=== PATIENT | male | born 1995 | race Caucasian/White ===

== ENCOUNTER 2017-02-11 11:05 | Emergency (ER) | payer OTHER ==
[2017-02-11 11:10] VITALS: BP 151/76
[2017-02-11] MEDS ORDERED: HYDROmorphone 1 MG/ML Syringe IM ONE (11:13)
--- NOTE | 2017-02-11 11:43 | EDM.PDOC ---
ED HPI GENERAL MEDICAL PROBLEM - General Chief Complaint: Laceration Stated Complaint: Smashed L pinky Time Seen by Provider: 02/11/17 11:10 Source of Information: Reports: Patient History Limitations: Reports: No Limitations - History of Present Illness Onset: Sudden Location: Reports: Upper Extremity, Left Quality: Reports: Ache Severity: Moderate Improves with: Reports: Immobilization Worsens with: Reports: Movement Left 5-Little finger Pain Score (Numeric/FACES): 5 - Related Data Allergies Allergy/AdvReac Type Severity Reaction Status Date / Time No Known Allergies Allergy Verified 02/11/17 11:07 Home Meds: Home Meds Acetaminophen [Tylenol Extra Strength] 500 mg PO BID PRN 04/19/15 [History] Cephalexin [Keflex] 500 mg PO QID #40 cap 02/11/17 [Rx] Past Medical History - Past Health History Medical/Surgical History: Denies Medical/Surgical History Social & Family History - Tobacco Use Smoking Status *Q: Never Smoker - Recreational Drug Use Recreational Drug Use: No ED ROS GENERAL - Review of Systems Review Of Systems: See Below Constitutional: Reports: No Symptoms HEENT: Reports: No Symptoms Respiratory: Reports: No Symptoms Cardiovascular: Reports: No Symptoms Endocrine: Reports: No Symptoms GI/Abdominal: Reports: No Symptoms : Reports: No Symptoms Musculoskeletal: Reports: No Symptoms Skin: Reports: No Symptoms Neurological: Reports: No Symptoms Psychiatric: Reports: No Symptoms Hematologic/Lymphatic: Reports: No Symptoms Immunologic: Reports: No Symptoms ED EXAM, SKIN/RASH Exam: See Below Exam Limited By: No Limitations General Appearance: Alert, WD/WN, No Apparent Distress Ears: Normal External Exam, Normal Canal, Hearing Grossly Normal, Normal TMs Nose: Normal Inspection, Normal Mucosa, No Blood Throat/Mouth: Normal Inspection, Normal Lips, Normal Teeth, Normal Gums, Normal Oropharynx, Normal Voice, No Airway Compromise Head: Atraumatic, Normocephalic Neck: Normal Inspection, Supple, Non-Tender, Full Range of Motion Respiratory/Chest: No Respiratory Distress, Lungs Clear, Normal Breath Sounds, No Accessory Muscle Use, Chest Non-Tender Cardiovascular: Normal Peripheral Pulses, Regular Rate, Rhythm, No Edema, No Gallop, No JVD, No Murmur, No Rub GI/Abdominal: Normal Bowel Sounds, Soft, Non-Tender, No Organomegaly, No Distention, No Abnormal Bruit, No Mass (Male) Exam: No Hernia, Deferred Rectal (Males) Exam: Deferred Back Exam: Normal Inspection, Full Range of Motion, NT Extremities: Other. No: No Pedal Edema (With pressure dressing on his left pinky at this time pressure dressing was removed noted a laceration in the distal and x-ray were obtained which reveal fracture of the distal third. Phalangeal nondisplaced) Neurological: Alert, Oriented, CN II-XII Intact, Normal Cognition, Normal Gait, Normal Reflexes, No Motor/Sensory Deficits Psychiatric: Normal Affect, Normal Mood Lymphatic: No Adenopathy ED SKIN PROCEDURES - Laceration/Wound Repair Left Distal Finger Lac/Wound length In cm: 1 Appearance: Subcutaneous Distal NVT: Neuro & Vascular Intact Anesthetic Type: Local Local Anesthesia - Lidocaine (Xylocaine): 2% Plain Local Anesthetic Volume: 2cc Skin Prep: Chlorhexidine (Hibiciens), Providone-Iodine (Betadine), Sterile Drape , Other (cleaned with chloraprep as well ) Exploration/Debridement/Repair: Wound Explored Closed with: Sutures Suture Size: other (5-0 sutures) Suture Type: Nylon Progress/Comments: Wound was on left distal 5th finger laceration was 1 cm the area was prepped and draped in the usual standard for after x-rays revealed fracture of the distal and comminuted nondisplaced we'll go ahead and sutures distal and place him on a crows nest for limiting motion and release him home not to drive for the next 24 hours since he received Dilaudid prior to repair of distal end Course - Vital Signs Last Recorded V/S: Last Vital Signs Temp 98.5 F 02/11/17 11:09 Pulse Resp 14 02/11/17 11:09 BP 151/76 H 02/11/17 11:09 Pulse Ox 99 02/11/17 11:09 - Orders/Labs/Meds Orders: Active Orders 24 hr Category Date Time Status Fingers Fifth Digit Lt F4 [CR] Stat Exams 02/11/17 11:10 Ordered Meds: Medications Discontinued Medications Generic Name Dose Route Start Last Admin Trade Name Freq PRN Reason Stop Dose Admin Hydromorphone HCl 2 mg 02/11/17 11:13 02/11/17 11:19 Dilaudid IM 02/11/17 11:14 2 mg ONETIME ONE Administration Lidocaine HCl Confirm 02/11/17 11:30 Xylocaine 2% Administered 02/11/17 11:31 Dose 10 ml .ROUTE .STK-MED ONE Neomycin/Polymyxin/Bacitracin 1 each 02/11/17 11:47 Triple Antibiotic Oint TOP 02/11/17 11:48 ONETIME ONE Departure - Departure Time of Disposition: 12:08 Disposition: Home, Self-Care 01 Condition: Good Clinical Impression: Laceration, Fracture - Discharge Information Prescriptions: Cephalexin [Keflex] 500 mg PO QID #40 cap Instructions: Hydromorphone injection, Cephalexin tablets or capsules, Stitches , Breanna, or Adhesive Wound Closure, [id number] Referrals: Jose Antonio Tarango MD [Emergency Provider] - 02/14/17 3:30 pm (Follow up ER Visit ) PCP,Franky [Primary Care Provider] - Forms: ED Department Discharge, Return to Work/School Form Additional Instructions: Off work today 02-11-17. No further restrictions. Patient to follow up in Tuesday in Clinic. - Problem List & Annotations (1) Fracture SNOMED Code(s): 299933898 Code(s): T14.8 - OTHER INJURY OF UNSPECIFIED BODY REGION Status: Acute Current Visit: Yes Annotation/Comment:: Distal end fifth finger comminuted but nondisplaced (2) Laceration SNOMED Code(s): 765599474 Code(s): IXP2622 - Status: Acute Current Visit: Yes Annotation/Comment :: Distal and fifth finger 1 cm - Problem List Review Problem List Initiated/Reviewed/Updated: Yes - My Orders Last 24 Hours: My Active Orders 02/11/17 11:10 Fingers Fifth Digit Lt F4 [CR] Stat - Assessment/Plan Last 24 Hours: My Active Orders 02/11/17 11:10 Fingers Fifth Digit Lt F4 [CR] Stat
[2017-02-11] MEDS ORDERED: Bacitracin/Neomycin/Polymyxin B Oint 0.9 GM U/D Packet TOP ONE (11:47)
== END 2017-02-11 12:10 | disposition home or self-care (01) ==
LOC: LL.ED 11:05
DX: S62.663A Nondisplaced fracture of distal phalanx of left middle finger, initial encounter for closed fracture (principal); S61.217A Laceration without foreign body of left little finger without damage to nail, initial encounter; W22.8XXA Striking against or struck by other objects, initial encounter
CPT/HCPCS: 12001; 73140; 96372; 99283; J1170

== ENCOUNTER 2017-07-16 07:50 | Emergency (ER) | payer OTHER ==
[2017-07-16] MEDS ORDERED: Sodium Chloride 0.9% 1,000 ML IV ONE ×2 (08:05→09:29)
[2017-07-16] MEDS ORDERED: predniSONE 20 MG Tab PO STA (08:06)
[2017-07-16] MEDS ORDERED: Ketorolac 30 MG/ML SDV IVPUSH ONE (08:07)
[2017-07-16 08:27] LABS: CHLORIDE,CL 101 mmol/L (98-107); SODIUM,NA 138 mmol/L (136-145)
[2017-07-16 08:44] VITALS: BP 142/69
[2017-07-16] MEDS ORDERED: methylPREDNISolone Sodium Succinate 125 MG/2 ML SDV IVPUSH ONE (08:44)
[2017-07-16] MEDS: Sodium Chloride 0.9% 10 ML Syringe FLUSH PRN ×2 (08:49→09:33)
[2017-07-16] MEDS ORDERED: Ondansetron 4 MG/2 ML SDV IVPUSH ONE (09:27)
[2017-07-16] MEDS ORDERED: Morphine 2 MG/ML Syringe IVPUSH ONE (09:28)
--- NOTE | 2017-07-16 10:27 | EDM.PDOC ---
ED HPI GENERAL MEDICAL PROBLEM - General Chief Complaint: General Stated Complaint: throat pain, SOB Time Seen by Provider: 07/16/17 08:25 Source of Information: Reports: Patient History Limitations: Reports: No Limitations - History of Present Illness INITIAL COMMENTS - FREE TEXT/NARRATIVE: Patient here for continued pharyngitis. Sick now for a full week. Seen in clinic . Negative Rapid Strep but started on Augmentin anyway. No improvement of pain/swelling. Very painful to swallow food/liquids. 10/10 pain. Has some nasal congestion (no rhinorrhea). Has had chills. Unaware of any fevers. No GI complaints until he started Augmentin. Developed nausea after taking pills as well as loose stools. No cough/SOB. No rash. No other complaints. 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 Says he is usually healthy otherwise. throat Pain Score (Numeric/FACES): 10 - Related Data Allergies Allergy/AdvReac Type Severity Reaction Status Date / Time No Known Allergies Allergy Verified 07/16/17 08:03 Home Meds: Home Meds Amoxicillin/Clavulanate K [Augmentin 875 MG/125 MG] 1 tab PO BID 07/16/17 [ History] DM Hb/PE/Acetaminophen/Chlorph [[place]herry-[place] Plus Cld-Cough] 1 each PO Q4HR PRN 07/16/17 [History] Ibuprofen 600 mg PO Q4HR PRN 07/16/17 [History] Prednisone [IJD: predniSONE] 20 mg PO WITHBREAKFAST PRN #5 tab 07/16/17 [Rx] traMADol [Ultram] 50 mg PO Q6H PRN #20 tablet 07/16/17 [Rx] Past Medical History - Past Health History Medical/Surgical History: Denies Medical/Surgical History Social & Family History - Tobacco Use Smoking Status *Q: Never Smoker Second Hand Smoke Exposure: No - Alcohol Use Days Per Week of Alcohol Use: 1 Number of Drinks Per Day: 1 Total Drinks Per Week: 1 - Recreational Drug Use Recreational Drug Use: No ED ROS GENERAL - Review of Systems Review Of Systems: See Below Constitutional: Reports: Chills, Malaise, Fatigue, Decreased Appetite. Denies: Fever, Weakness, Diaphoresis HEENT: Reports: Ear Pain, Throat Pain, Throat Swelling. Denies: Rhinitis, Sinus Problem, Vertigo, Vision Change Respiratory: Reports: No Symptoms Cardiovascular: Reports: No Symptoms GI/Abdominal: Reports: Diarrhea, Decreased Appetite, Difficulty Swallowing, Nausea. Denies: Abdominal Pain, Constipation, Distension, Hematemesis, Hematochezia, Vomiting : Reports: No Symptoms Musculoskeletal: Reports: No Symptoms. Denies: Neck Pain Skin: Reports: No Symptoms Neurological: Denies: Confusion, Dizziness, Headache, Syncope, Difficulty Walking, Weakness, Change in Speech, Gait Disturbance Psychiatric: Reports: No Symptoms Hematologic/Lymphatic: Reports: No Symptoms ED EXAM, GENERAL - Physical Exam Exam: See Below Exam Limited By: No Limitations General Appearance: Alert, WD/WN, No Apparent Distress, Other (appears tired. Is uncomfortable when he tries to speak or swallow. ) Eye Exam: Bilateral Eye: EOMI, PERRL Ears: Normal External Exam, Normal Canal, Hearing Grossly Normal, Normal TMs Nose: Normal Inspection Throat/Mouth: Normal Lips, Normal Voice, No Airway Compromise, Other (Very swollen tonsils bilaterally. Minimal exudate noted. Symmetric swelling. Increased redness. ) Head: Atraumatic, Normocephalic Neck: Supple, Full Range of Motion, Lymphadenopathy (L), Lymphadenopathy (R) Respiratory/Chest: No Respiratory Distress, Lungs Clear, Normal Breath Sounds, No Accessory Muscle Use Cardiovascular: No Murmur, Tachycardia Peripheral Pulses: 2+: Radial (L), Radial (R) GI/Abdominal: Normal Bowel Sounds, Soft, Non-Tender, No Distention, No Mass (Male) Exam: Deferred Rectal (Males) Exam: Deferred Back Exam: Normal Inspection Extremities: Normal Range of Motion, Non-Tender, No Pedal Edema, Slow Capillary Refill (3-4 seconds) Neurological: Alert, Oriented, Normal Cognition, Normal Gait, No Motor/Sensory Deficits Psychiatric: Normal Affect, Normal Mood Skin Exam: Warm, Dry, Intact, Normal Color Lymphatic: Adenopathy Course - Vital Signs Last Recorded V/S: Last Vital Signs Temp 38.2 C H 07/16/17 08:33 Pulse 113 H 07/16/17 08:33 Resp 18 07/16/17 08:33 BP 142/69 H 07/16/17 08:33 Pulse Ox 97 07/16/17 08:33 - Orders/Labs/Meds Orders: Active Orders 24 hr Category Date Time Status Peripheral IV Care [RC] . DIRECTED Care 07/16/17 08:05 Active CULTURE URINE [RM] Stat Lab 07/16/17 09:52 Received Sodium Chloride 0.9% [Saline Flush] Med 07/16/17 08:05 Active 10 ml FLUSH ASDIRECTED PRN Peripheral IV Insertion Adult [OM.PC] Routine Oth 07/16/17 08:05 Ordered Labs: Laboratory Tests 07/16/17 07/16/17 07/16/17 Range/Units 08:05 08:05 08:05 WBC 12.0 H (4.0-10.2) K/uL RBC 4.68 (4.33-5.41) M/uL Hgb 14.6 (13.1-16.8) g/dL Hct 42.7 (39.0-49.0) % MCV 91.2 (84.0-98.0) fL MCH 31.2 (28.2-33.3) pg MCHC 34.2 (31.7-36.0) g/dL RDW 12.5 (11.2-14.1) % Plt Count 182 (150-350) K/uL Neut % (Auto) 62.5 (45.0-80.0) % Lymph % (Auto) 24.5 (10.0-50.0) % Fountain % (Auto) 12.8 (2.0-14.0) % Eos % (Auto) 0.0 (0.0-5.0) % Baso % (Auto) 0.2 (0.0-2.0) % Neut # (Auto) 7.49 H (1.40-7.00) K/uL Lymph # (Auto) 2.94 (0.50-3.50) K/uL Fountain # (Auto) 1.53 H (0.00-1.00) K/uL Eos # (Auto) 0.00 (0.00-0.50) K/uL Baso # (Auto) 0.02 (0.00-0.20) K/uL Sodium 138 (136-145) mmol/L Potassium 4.0 (3.5-5.1) mmol/L Chloride 101 (98-107) mmol/L Carbon Dioxide 25.8 (21.0-32.0) mmol/L BUN 9 (7-18) mg/dL Creatinine 0.73 (0.51-1.17) mg/dL Est Cr Clr Drug Dosing TNP Estimated GFR (MDRD) > 60 mL/min Glucose 119 H (74-106) mg/dL Calcium 9.2 (8.5-10.1) mg/dL Specimen Type Urine Color Urine Appearance Urine pH (5.0-9.0) Ur Specific [place] (1.005-1.030) Urine Protein (NEGATIVE) mg/dL Urine Glucose (UA) (NEGATIVE) mg/dL Urine Ketones (NEGATIVE) mg/dL Urine Occult Blood (NEGATIVE) Urine Nitrite (NEGATIVE) Urine Bilirubin (NEGATIVE) Urine Urobilinogen (0.2-1.0) E.U./dL Ur Leukocyte Esterase (NEGATIVE) Urine RBC /HPF Urine WBC /HPF Ur Epithelial Cells /LPF Urine Bacteria (NONE TO FEW) /HPF Monoscreen Positive H (NEGATIVE) 07/16/17 Range/Units 09:52 WBC (4.0-10.2) K/uL RBC (4.33-5.41) M/uL Hgb (13.1-16.8) g/dL Hct (39.0-49.0) % MCV (84.0-98.0) fL MCH (28.2-33.3) pg MCHC (31.7-36.0) g/dL RDW (11.2-14.1) % Plt Count (150-350) K/uL Neut % (Auto) (45.0-80.0) % Lymph % (Auto) (10.0-50.0) % Fountain % (Auto) (2.0-14.0) % Eos % (Auto) (0.0-5.0) % Baso % (Auto) (0.0-2.0) % Neut # (Auto) (1.40-7.00) K/uL Lymph # (Auto) (0.50-3.50) K/uL Fountain # (Auto) (0.00-1.00) K/uL Eos # (Auto) (0.00-0.50) K/uL Baso # (Auto) (0.00-0.20) K/uL Sodium (136-145) mmol/L Potassium (3.5-5.1) mmol/L Chloride (98-107) mmol/L Carbon Dioxide (21.0-32.0) mmol/L BUN (7-18) mg/dL Creatinine (0.51-1.17) mg/dL Est Cr Clr Drug Dosing Estimated GFR (MDRD) mL/min Glucose (74-106) mg/dL Calcium (8.5-10.1) mg/dL Specimen Type Urincc Urine Color Dark yellow Urine Appearance Clear Urine pH 6.0 (5.0-9.0) Ur Specific [place] 1.025 (1.005-1.030) Urine Protein 100 H (NEGATIVE) mg/dL Urine Glucose (UA) Negative (NEGATIVE) mg/dL Urine Ketones >=160 H (NEGATIVE) mg/dL Urine Occult Blood Negative (NEGATIVE) Urine Nitrite Negative (NEGATIVE) Urine Bilirubin Moderate H (NEGATIVE) Urine Urobilinogen 1.0 (0.2-1.0) E.U./dL Ur Leukocyte Esterase Negative (NEGATIVE) Urine RBC 0-5 /HPF Urine WBC 0-5 /HPF Ur Epithelial Cells Few /LPF Urine Bacteria Few (NONE TO FEW) /HPF Monoscreen (NEGATIVE) Meds: Medications Discontinued Medications Generic Name Dose Route Start Last Admin Trade Name Freq PRN Reason Stop Dose Admin Sodium Chloride 1,000 mls @ 999 mls/hr 07/16/17 08:05 07/16/17 08:25 Normal Saline IV 07/16/17 09:05 999 mls/hr .BOLUS ONE Administration Sodium Chloride 1,000 mls @ 999 mls/hr 07/16/17 09:29 07/16/17 09:34 Normal Saline IV 07/16/17 10:29 999 mls/hr .BOLUS ONE Administration Ketorolac Tromethamine 30 mg 07/16/17 08:07 07/16/17 08:24 Toradol IVPUSH 07/16/17 08:08 30 mg ONETIME ONE Administration Methylprednisolone Sodium Succinate 125 mg 07/16/17 08:44 07/16/17 08:48 Solu-Medrol IVPUSH 07/16/17 08:45 125 mg ONETIME ONE Administration Morphine Sulfate 2 mg 07/16/17 09:28 07/16/17 09:32 Morphine IVPUSH 07/16/17 09:29 2 mg ONETIME ONE Administration Morphine Sulfate 5 mg 07/16/17 11:00 07/16/17 11:08 Morphine IVPUSH 07/16/17 11:01 5 mg ONETIME ONE Administration Ondansetron HCl 4 mg 07/16/17 09:27 07/16/17 09:32 Zofran IVPUSH 07/16/17 09:28 4 mg ONETIME ONE Administration Prednisone 40 mg 07/16/17 08:06 07/16/17 08:47 Prednisone PO 07/16/17 08:07 Not Given ONETIME STA Sodium Chloride 10 ml 07/16/17 08:05 07/16/17 09:33 Saline Flush FLUSH 10 ml ASDIRECTED PRN Administration Keep Vein Open - Re-Assessments/Exams Free Text/Narrative Re-Assessment/Exam: Positive for Fountain. Mild increase in WBC at 12 Chem is unremarkable. UA showed large quantity of ketones. Mild dehydration noted along with fever and tachycardia. Given Toradol and IV fluid bolus. Solumedrol given to help tonsils which were significantly swollen. Patient unable to swallow PO Prednisone. Ultimately, small amount MS given to help with pain. Patient felt improved after interventions. Pulse rate improved with fluid bolus. Patient discharged home. Rx for additional Tramadol given, as well as PRN Prednisone if swelling returns later this week. Numerous precautions reviewed prior to discharge. Normal course of Fountain discussed. They are to follow up as needed. OK to d/c Augmentin Departure - Departure Time of Disposition: 10:51 Disposition: Home, Self-Care 01 Condition: Good Clinical Impression: Mononucleosis, Dehydration Pharyngitis Qualifiers: Pharyngitis/tonsillitis etiology: infectious mononucleosis Qualified Code(s): B27.90 - Infectious mononucleosis, unspecified without complication - Discharge Information Prescriptions: Prednisone [IJD: predniSONE] 20 mg PO WITHBREAKFAST PRN #5 tab PRN Reason: Other traMADol [Ultram] 50 mg PO Q6H PRN #20 tablet PRN Reason: Pain Instructions: Ketorolac injection, Ondansetron injection, Infectious Mononucleosis, [id number], Prednisone tablets, Morphine injection solution Referrals: PCP,Unknown [Primary Care Provider] - Forms: ED Department Discharge Additional Instructions: Home, rest, drink plenty of fluids to stay hydrated. If you cannot swallow the antibiotic you were given the other day, it is very likely OK to discontinue it as your symptoms are explainable given the positive Fountain test. It is too late to accurately test for strep since you were on the antibiotics already. Swelling should improve now that you were given a steroid. If problematic swelling returns next week, it is ok to take the prescribed prednisone. Use Tramadol as needed to help with pain. Follow up Tuesday here if you need work excuse for additional day off as we discussed. Follow up otherwise as needed if you have other problems develop. - My Orders Last 24 Hours: My Active Orders 07/16/17 08:05 Peripheral IV Care [RC] . DIRECTED Sodium Chloride 0.9% [Saline Flush] 10 ml FLUSH ASDIRECTED PRN Peripheral IV Insertion Adult [OM.PC] Routine 07/16/17 09:52 CULTURE URINE [RM] Stat - Assessment/Plan Last 24 Hours: My Active Orders 07/16/17 08:05 Peripheral IV Care [RC] . DIRECTED Sodium Chloride 0.9% [Saline Flush] 10 ml FLUSH ASDIRECTED PRN Peripheral IV Insertion Adult [OM.PC] Routine 07/16/17 09:52 CULTURE URINE [RM] Stat
[2017-07-16] MEDS ORDERED: Morphine 10 MG/ML Syringe IVPUSH ONE (11:00)
== END 2017-07-16 11:30 | disposition home or self-care (01) ==
LOC: LL.ED 07:50
DX: B27.90 Infectious mononucleosis, unspecified without complication (principal); E86.0 Dehydration; R00.0 Tachycardia, unspecified
CPT/HCPCS: 36415; 80048; 81001; 85025; 86308; 87086; 96361; 96374; 96375; 96376; 99283; J1885; J2270; J2405; J2930; J7030; J7050

== ENCOUNTER 2017-07-17 15:06 | Observation (INO) | payer OTHER ==
[2017-07-17] MEDS ORDERED: methylPREDNISolone Sodium Succinate 125 MG/2 ML SDV IM ONE (15:08)
[2017-07-17] MEDS ORDERED: Ketorolac 30 MG/ML SDV IVPUSH ONE (15:08)
[2017-07-17 15:28] LABS: CHLORIDE,CL 100 mmol/L (98-107); SODIUM,NA 137 mmol/L (136-145)
[2017-07-17] MEDS: Sodium Chloride 0.9% 1,000 ML IV SCH ×2 (15:29→22:01)
[2017-07-17] MEDS ORDERED: methylPREDNISolone Sodium Succinate 125 MG/2 ML SDV IVPUSH ONE (15:37)
[2017-07-17] MEDS: Sodium Chloride 0.9% 10 ML Syringe FLUSH PRN (15:43)
[2017-07-17] MEDS ORDERED: Morphine 10 MG/ML Syringe IVPUSH ONE (16:27)
[2017-07-17] MEDS ORDERED: Ondansetron 4 MG/2 ML SDV IVPUSH ONE (16:28)
--- NOTE | 2017-07-17 17:02 | PCM.HP ---
H&P History of Present Illness - General Date of Service: 07/17/17 Admit Problem/Dx: Admission Diagnosis/Problem Admission Diagnosis/Problem Dehydration Source of Information: Patient History Limitations: Reports: No Limitations - History of Present Illness Initial Comments - Free Text/Narative: Patient returns to hospital due to continued problems with drinking/eating/ swallowing and throat pain due to recent Cocke infection. Did have improvement after receiving IV fluids yesterday as well as pain medication but these did not last. Denies any acute SOB/respiratory difficulty. See EMR from yesterday for additional history. throat Pain Score (Numeric/FACES): 10 - Related Data Allergies/Adverse Reactions: Allergies Allergy/AdvReac Type Severity Reaction Status Date / Time No Known Allergies Allergy Verified 07/17/17 15:16 Home Medications: Home Meds DM Hb/PE/Acetaminophen/Chlorph [Sherry-[place] Plus Cld-Cough] 1 each PO Q4HR PRN 07/16/17 [History] Ibuprofen 600 mg PO Q4HR PRN 07/16/17 [History] traMADol [Ultram] 50 mg PO Q6H PRN #20 tablet 07/16/17 [Rx] Prednisone [IJD: predniSONE] 40 mg PO WITHBREAKFAST PRN 07/17/17 [History] Past Medical History - Past Health History Medical/Surgical History: Denies Medical/Surgical History Social & Family History - Tobacco Use Smoking Status *Q: Never Smoker Second Hand Smoke Exposure: No - Alcohol Use Days Per Week of Alcohol Use: 1 Number of Drinks Per Day: 1 Total Drinks Per Week: 1 - Recreational Drug Use Recreational Drug Use: No H&P Review of Systems - Review of Systems: Review Of Systems: See Below General: Reports: Fever, Chills, Malaise, Weakness, Fatigue, Decreased Appetite. Denies: Diaphoresis HEENT: Reports: Sinus Congestion, Sore Throat. Denies: Contact Lenses, Dysphasia, Ear Pain, Eye Pain, Headaches, Hearing Changes, Rhinitis, Post Nasal Drip, Vertigo, Visual Changes Pulmonary: Reports: No Symptoms. Denies: Shortness of Breath, Wheezing Cardiovascular: Reports: No Symptoms Gastrointestinal: Reports: Diarrhea (had 3 days of Augmentin), Decreased Appetite, Difficulty Swallowing. Denies: Abdominal Pain, Nausea, Vomiting Genitourinary: Reports: No Symptoms Musculoskeletal: Reports: Other (generalized aches) Skin: Reports: No Symptoms Exam - Exam Exam: See Below - Vital Signs Vital Signs: Last Vital Signs Temp 37.0 C 07/17/17 15:07 Pulse 103 H 07/17/17 15:07 Resp 18 07/17/17 15:07 BP 143/71 H 07/17/17 15:07 Pulse Ox 98 07/17/17 15:07 Weight: 101.179 kg - Exam General: Alert, Oriented, Cooperative HEENT: Conjunctiva Clear, EACs Clear, EOMI, Nares Patent, Pupils Equal, Pupils Reactive, Other (Significantly swollen tonsils with some exudate noted, reddened. Symmetric swelling. Uvula midline) Neck: Supple, Trachea Midline, Lymphadenopathy Lungs: Clear to Auscultation, Normal Respiratory Effort Cardiovascular: Regular Rhythm, Tachycardia GI/Abdominal Exam: Normal Bowel Sounds, Soft, Other (mild tenderness upper quadrants.). No: Distended, Guarding, Rigid, Rebound, Hepatomegaly, Splenomegaly (Male) Exam: Deferred Rectal (Males) Exam: Deferred Back Exam: Normal Inspection Extremities: Normal Range of Motion, Non-Tender, No Pedal Edema, Other (Cap refill 3-4 sec) Peripheral Pulses: 2+: Radial (L), Radial (R) Skin: Warm, Dry, Intact Neurological: Cranial Nerves Intact, Strength Equal Bilateral, Normal Gait, Normal Speech, Normal Tone Neuro Extensive - Mental Status: Alert, Oriented x3, Normal Mood/Affect, Normal Cognition, Memory Intact Psychiatric: Alert, Normal Affect, Normal Mood - Patient Data Lab Results Last 24 hrs: Laboratory Results - last 24 hr 07/17/17 Range/Units 15:10 Sodium 137 (136-145) mmol/L Potassium 3.8 (3.5-5.1) mmol/L Chloride 100 (98-107) mmol/L Carbon Dioxide 25.4 (21.0-32.0) mmol/L BUN 11 (7-18) mg/dL Creatinine 0.64 (0.51-1.17) mg/dL Est Cr Clr Drug Dosing TNP Estimated GFR (MDRD) > 60 mL/min Glucose 138 H (74-106) mg/dL Calcium 9.0 (8.5-10.1) mg/dL Total Bilirubin 0.4 (0.2-1.0) mg/dL AST 160 H (15-37) U/L ALT 263 H (12-78) U/L Alkaline Phosphatase 158 H (46-116) IU/L Total Protein 8.1 (6.4-8.2) g/dL Albumin 3.5 (3.4-5.0) g/dL Result Diagrams: 07/17/17 15:10 *Q Meaningful Use (ADM) - VTE *Q VTE Criteria *Q: - Stroke *Q Stroke Criteria *Q: - AMI *Q AMI Criteria *Q: - Problem List (1) Dehydration SNOMED Code(s): 68541630 ICD Code: E86.0 - DEHYDRATION Status: Acute Priority: High Current Visit: Yes Onset Date: ~07/09/17 Problem Details: Patient has severe 10/10 throat pain and has a great deal of difficulty swallowing any liquids/food. (2) Mononucleosis SNOMED Code(s): 40958817 ICD Code: B27.90 - INFECTIOUS MONONUCLEOSIS, UNSPECIFIED WITHOUT COMPLICATION Status: Acute Priority: High Current Visit: Yes Onset Date : 07/02/17 (3) Pharyngitis SNOMED Code(s): 894386298 ICD Code: J02.9 - ACUTE PHARYNGITIS, UNSPECIFIED Status: Acute Priority: High Current Visit: Yes Qualifiers: Pharyngitis/tonsillitis etiology: infectious mononucleosis Qualified Code(s ): B27.90 - Infectious mononucleosis, unspecified without complication (4) Elevated LFTs SNOMED Code(s): 802826338 ICD Code: R79.89 - OTHER SPECIFIED ABNORMAL FINDINGS OF BLOOD CHEMISTRY Status: Acute Priority: Medium Current Visit: Yes Onset Date: ~07/09/17 Problem Details: Suspect secondary to acute Cocke infection Problem List Initiated/Reviewed/Updated: Yes Orders Last 24hrs: Active Orders 24 hr Category Date Time Status Admission Status [Patient Status] [ADT] Routine ADT 07/17/17 15:06 Active URINALYSIS W/MICROSCOPIC [UA W/MICROSCOPIC] [URIN] Lab 07/17/17 15:10 Uncollected Routine Sodium Chloride 0.9% [Normal Saline] 1,000 ml Med 07/17/17 15:15 Active IV ASDIRECTED Sodium Chloride 0.9% [Saline Flush] Med 07/17/17 15:25 Active 10 ml FLUSH ASDIRECTED PRN Medication Orders Sodium Chloride (Normal Saline) 1,000 mls @ 150 mls/hr IV ASDIRECTED RICKY Last Admin: 07/17/17 15:29 Dose: 150 mls/hr Sodium Chloride (Saline Flush) 10 ml FLUSH ASDIRECTED PRN PRN Reason: to keep IV open Last Admin: 07/17/17 15:43 Dose: 10 ml Acute Infectious Mononuclosis with severe pharyngitis and dehydration. Assessment/Plan Comment:: Acute Infectious Mononuclosis with severe pharyngitis and dehydration. Plan at this times includes continued observation, maintenance IV fluids, and pain management. Additionally, Solu-medrol with goal of improving tonsillar swelling. Anticipate 2-3 days of inpatient care.
[2017-07-17] MEDS ORDERED: Acetaminophen 325 MG Tab PO PRN (17:17)
[2017-07-17] MEDS ORDERED: Morphine 4 MG/ML Syringe IVPUSH PRN (17:20)
[2017-07-17] MEDS ORDERED: traMADol 50 MG Tab PO PRN (17:22)
[2017-07-18] MEDS: Ondansetron 4 MG/2 ML SDV IVPUSH PRN ×2 (04:44→23:29)
[2017-07-18] MEDS: methylPREDNISolone Sodium Succinate 125 MG/2 ML SDV IVPUSH SCH ×2 (04:44→16:29)
[2017-07-18] MEDS: Sodium Chloride 0.9% 1,000 ML IV SCH ×3 (04:44→19:44)
[2017-07-18] MEDS ORDERED: Ketorolac 30 MG/ML SDV IVPUSH PRN (12:00)
[2017-07-18] MEDS ORDERED: Sodium Chloride 0.9% 500 ML IV SCH (12:15)
[2017-07-18] MEDS: Pantoprazole 40 MG Vial IVPUSH SCH (12:56)
--- NOTE | 2017-07-18 21:29 | PCM.PN ---
- General Info Date of Service: 07/18/17 Admission Dx/Problem (Free Text): Admission Diagnosis/Problem Admission Diagnosis/Problem Dehydration Functional Status: Reports: Pain Controlled (Best with MS), Tolerating Diet, Ambulating, Urinating. Denies: New Symptoms Pain Score: 3 - Review of Systems General: Reports: Fatigue, Appetite (improving). Denies: Fever, Weakness, Chills HEENT: Reports: Sinus Congestion, Sore Throat. Denies: Headaches, Rhinitis Pulmonary: Reports: No Symptoms Cardiovascular: Reports: No Symptoms Gastrointestinal: Reports: Difficulty Swallowing, Nausea (appears associated with MS doses), Other (Feels full/uncomfortable in abdominal area, like he is constipated. However he has had daily bowel movements. ). Denies: Constipation , Diarrhea, Hematochezia, Melena, Vomiting Genitourinary: Reports: No Symptoms Musculoskeletal: Reports: Other (achy all over) Skin: Reports: No Symptoms Neurological: Reports: No Symptoms Psychiatric: Reports: No Symptoms - Patient Data Vitals - Most Recent: Last Vital Signs Temp 36.7 C 07/18/17 11:33 Pulse 68 07/18/17 11:33 Resp 16 07/18/17 05:34 BP 140/78 07/18/17 11:33 Pulse Ox 97 07/18/17 11:33 Weight - Most Recent: 101.179 kg I&O - Last 24 Hours: Intake & Output 07/18/17 07/18/17 07/18/17 06:59 14:59 22:59 Intake Total 1428 1000 Balance 1428 1000 Lab Results Last 24 Hours: Laboratory Results - last 24 hr 07/17/17 Range/Units 19:10 Specimen Type Urincc Urine Color Dark yellow Urine Appearance Clear Urine pH 6.0 (5.0-9.0) Ur Specific [place] 1.020 (1.005-1.030) Urine Protein Trace H (NEGATIVE) mg/dL Urine Glucose (UA) 500 H (NEGATIVE) mg/dL Urine Ketones Negative (NEGATIVE) mg/dL Urine Occult Blood Negative (NEGATIVE) Urine Nitrite Negative (NEGATIVE) Urine Bilirubin Negative (NEGATIVE) Urine Urobilinogen 0.2 (0.2-1.0) E.U./dL Ur Leukocyte Esterase Negative (NEGATIVE) Urine RBC 0-5 /HPF Urine WBC 5-10 H /HPF Ur Epithelial Cells Few /LPF Urine Bacteria Rare (NONE TO FEW) /HPF Urine Mucus Few H (NEGATIVE) /LPF Med Orders - Current: Current Medications Acetaminophen (Tylenol) 650 mg PO Q4H PRN PRN Reason: analgesia/fever Sodium Chloride (Normal Saline) 1,000 mls @ 150 mls/hr IV ASDIRECTED [facility] Last Admin: 07/18/17 19:44 Dose: 150 mls/hr Ketorolac Tromethamine (Toradol) 30 mg IVPUSH Q8H PRN PRN Reason: Pain Stop: 07/23/17 12:01 Last Admin: 07/18/17 13:31 Dose: 30 mg Methylprednisolone Sodium Succinate (Solu-Medrol) 125 mg IVPUSH Q12H [facility] Last Admin: 07/18/17 16:29 Dose: 125 mg Morphine Sulfate (Morphine) 4 mg IVPUSH Q2H PRN PRN Reason: Pain Last Admin: 07/18/17 04:44 Dose: 4 mg Ondansetron HCl (Zofran) 4 mg IVPUSH Q6H PRN PRN Reason: Nausea/Vomiting Last Admin: 07/18/17 04:44 Dose: 4 mg Pantoprazole Sodium (Protonix Iv) 40 mg IVPUSH DAILY [facility] Last Admin: 07/18/17 12:56 Dose: 40 mg Senna/Docusate Sodium (Senna Plus) 1 tab PO BID PRN PRN Reason: Constipation Last Admin: 07/18/17 13:31 Dose: 1 tab Sodium Chloride (Saline Flush) 10 ml FLUSH ASDIRECTED PRN PRN Reason: to keep IV open Last Admin: 07/17/17 15:43 Dose: 10 ml Tramadol HCl (Ultram) 50 mg PO Q6H PRN PRN Reason: Pain Last Admin: 07/18/17 11:25 Dose: 50 mg Discontinued Medications Sodium Chloride (Normal Saline) 500 mls @ 500 mls/hr IV .BOLUS [facility] Ketorolac Tromethamine (Toradol) 30 mg IVPUSH ONETIME ONE Stop: 07/17/17 15:09 Last Admin: 07/17/17 15:31 Dose: 30 mg Methylprednisolone Sodium Succinate (Solu-Medrol) 125 mg IVPUSH ONETIME ONE Stop: 07/17/17 15:38 Last Admin: 07/17/17 15:43 Dose: 125 mg Morphine Sulfate (Morphine) 5 mg IVPUSH ONETIME ONE Stop: 07/17/17 16:28 Last Admin: 07/17/17 16:43 Dose: 5 mg Ondansetron HCl (Zofran) 4 mg IVPUSH ONETIME ONE Stop: 07/17/17 16:29 Last Admin: 07/17/17 16:43 Dose: 4 mg - Exam General: Alert, Oriented, Cooperative, No Acute Distress HEENT: Pupils Equal, Pupils Reactive, EOMI, Mucous Membr. Moist/[place] Neck: Supple Lungs: Clear to Auscultation, Normal Respiratory Effort Cardiovascular: Regular Rate, Regular Rhythm GI/Abdominal Exam: Soft, No Distention, Other (mild discomfort with palpation over abdomen, more in RUQ today. Questionable hepatic enlargement on exam) (Male) Exam: Deferred Back Exam: Normal Inspection Extremities: Normal Inspection, Normal Range of Motion, Non-Tender, No Pedal Edema, Normal Capillary Refill Peripheral Pulses: 2+: Radial (L), Radial (R) Skin: Warm, Dry, Intact Neurological: No New Focal Deficit Psy/Mental Status: Alert, Normal Affect, Normal Mood - Problem List & Annotations (1) Dehydration SNOMED Code(s): 30707992 Code(s): E86.0 - DEHYDRATION Status: Acute Priority: High Current Visit : Yes Onset Date: ~07/09/17 Annotation/Comment:: Improving. Continues to receive IV fluids. Improved ability to take PO today however still with good amount of discomfort when swallowing. (2) Mononucleosis SNOMED Code(s): 99113977 Code(s): B27.90 - INFECTIOUS MONONUCLEOSIS, UNSPECIFIED WITHOUT COMPLICATION Status: Acute Priority: High Current Visit: Yes Onset Date: 07/02/17 (3) Pharyngitis SNOMED Code(s): 338321677 Code(s): J02.9 - ACUTE PHARYNGITIS, UNSPECIFIED Status: Acute Priority: High Current Visit: Yes Qualifiers: Pharyngitis/tonsillitis etiology: infectious mononucleosis Qualified Code(s ): B27.90 - Infectious mononucleosis, unspecified without complication Annotation/Comment:: Mild improvement in size of tonsils noted today. Continuing Solumedrol Q12 (4) Elevated LFTs SNOMED Code(s): 554225452 Code(s): R79.89 - OTHER SPECIFIED ABNORMAL FINDINGS OF BLOOD CHEMISTRY Status: Acute Priority: Medium Current Visit: Yes Onset Date: ~07/09/17 Annotation/Comment:: Suspect secondary to acute [place] infection. Hepatomegaly noted on abdominal xray today. - Problem List Review Problem List Initiated/Reviewed/Updated: Yes - My Orders Last 24 Hours: My Active Orders 07/18/17 04:00 methylPREDNISolone Sod Succ [Solu-MEDROL] 125 mg IVPUSH Q12H 07/18/17 12:00 Ketorolac [Toradol] 30 mg IVPUSH Q8H PRN 07/18/17 12:05 Abdomen 2V AP Flat Upright [CR] Routine 07/18/17 12:15 Pantoprazole [ProTONIX IV] 40 mg IVPUSH DAILY 07/18/17 13:10 Docusate Sodium/Sennosides [Senna Plus] 1 tab PO BID PRN 07/19/17 05:11 CBC WITH AUTO DIFF [HEME] AM CMP [COMPREHENSIVE METABOLIC PN,CMP] [CHEM] AM - Assessment Assessment:: Acute [place] infection with secondary dehydration. Severe tonsillar enlargement has improved since yesterday, but remains significant. Pain is best controlled with MS but that causes some GI discomfort with patient. Has PRN Tylenol, Tramadol, and Toradol for pain management alternatives. Some improvement in ability to take PO noted today. - Plan Plan:: Acute Infectious Mononuclosis with severe pharyngitis and dehydration. Plan at this times includes continued observation, maintenance IV fluids, and pain management. Additionally, Solu-medrol with goal of improving tonsillar swelling. Anticipate 2 days in observation care. Will change to inpatient status if adaquate control of pain and swelling is not achieved in that timeframe.
[2017-07-18] MEDS ORDERED: Morphine 2 MG/ML Syringe IVPUSH PRN (21:33)
[2017-07-18] MEDS: Sodium Chloride 0.9% 10 ML Syringe FLUSH PRN (23:30)
[2017-07-19 01:31] VITALS: BP 131/57
[2017-07-19] MEDS: Sodium Chloride 0.9% 1,000 ML IV SCH (02:32)
[2017-07-19] MEDS: methylPREDNISolone Sodium Succinate 125 MG/2 ML SDV IVPUSH SCH (04:38)
[2017-07-19] MEDS: Sodium Chloride 0.9% 10 ML Syringe FLUSH PRN (04:39)
[2017-07-19] MEDS: Pantoprazole 40 MG Vial IVPUSH SCH (13:00)
[2017-07-19 14:09] LABS: CHLORIDE,CL 103 mmol/L (98-107); SODIUM,NA 139 mmol/L (136-145)
[2017-07-19] MEDS ORDERED: methylPREDNISolone Sodium Succinate 40 MG/1 ML SDV IVPUSH ONE ×2 (15:00→15:30)
--- NOTE | 2017-07-19 17:39 | PCM.PN ---
- General Info Date of Service: 07/19/17 Admission Dx/Problem (Free Text): Admission Diagnosis/Problem Admission Diagnosis/Problem Dehydration Functional Status: Reports: Pain Controlled, Tolerating Diet - Review of Systems General: Reports: No Symptoms HEENT: Reports: Other (still some throat pain) Pulmonary: Reports: No Symptoms Cardiovascular: Reports: No Symptoms Gastrointestinal: Reports: No Symptoms Genitourinary: Reports: No Symptoms Musculoskeletal: Reports: No Symptoms Skin: Reports: No Symptoms Neurological: Reports: No Symptoms Psychiatric: Reports: No Symptoms - Patient Data Vitals - Most Recent: Last Vital Signs Temp 98 F 07/19/17 00:30 Pulse 96 07/19/17 00:30 Resp 18 07/19/17 00:30 BP 131/57 L 07/19/17 00:30 Pulse Ox 97 07/19/17 00:30 Weight - Most Recent: 223 lb 0.984 oz I&O - Last 24 Hours: Intake & Output 07/19/17 07/19/17 07/19/17 06:59 14:59 22:59 Intake Total 1000 Balance 1000 Med Orders - Current: Current Medications Acetaminophen (Tylenol) 650 mg PO Q4H PRN PRN Reason: analgesia/fever Sodium Chloride (Normal Saline) 1,000 mls @ 125 mls/hr IV ASDIRECTED [facility] Last Admin: 07/19/17 02:32 Dose: 150 mls/hr Ketorolac Tromethamine (Toradol) 30 mg IVPUSH Q8H PRN PRN Reason: Pain Stop: 07/23/17 12:01 Last Admin: 07/18/17 13:31 Dose: 30 mg Methylprednisolone Sodium Succinate (Solu-Medrol) 125 mg IVPUSH Q12H [facility] Last Admin: 07/19/17 04:38 Dose: 125 mg Morphine Sulfate (Morphine) 2 mg IVPUSH Q4H PRN PRN Reason: Pain Last Admin: 07/18/17 23:29 Dose: 2 mg Ondansetron HCl (Zofran) 4 mg IVPUSH Q6H PRN PRN Reason: Nausea/Vomiting Last Admin: 07/18/17 23:29 Dose: 4 mg Pantoprazole Sodium (Protonix Iv) 40 mg IVPUSH DAILY [facility] Last Admin: 07/19/17 13:00 Dose: Not Given Senna/Docusate Sodium (Senna Plus) 1 tab PO BID PRN PRN Reason: Constipation Last Admin: 07/18/17 13:31 Dose: 1 tab Sodium Chloride (Saline Flush) 10 ml FLUSH ASDIRECTED PRN PRN Reason: to keep IV open Last Admin: 07/19/17 04:39 Dose: 10 ml Tramadol HCl (Ultram) 50 mg PO Q6H PRN PRN Reason: Pain Last Admin: 07/18/17 11:25 Dose: 50 mg Discontinued Medications Sodium Chloride (Normal Saline) 500 mls @ 500 mls/hr IV .BOLUS [facility] Ketorolac Tromethamine (Toradol) 30 mg IVPUSH ONETIME ONE Stop: 07/17/17 15:09 Last Admin: 07/17/17 15:31 Dose: 30 mg Methylprednisolone Sodium Succinate (Solu-Medrol) 125 mg IVPUSH ONETIME ONE Stop: 07/17/17 15:38 Last Admin: 07/17/17 15:43 Dose: 125 mg Morphine Sulfate (Morphine) 5 mg IVPUSH ONETIME ONE Stop: 07/17/17 16:28 Last Admin: 07/17/17 16:43 Dose: 5 mg Morphine Sulfate (Morphine) 4 mg IVPUSH Q2H PRN PRN Reason: Pain Last Admin: 07/18/17 04:44 Dose: 4 mg Ondansetron HCl (Zofran) 4 mg IVPUSH ONETIME ONE Stop: 07/17/17 16:29 Last Admin: 07/17/17 16:43 Dose: 4 mg - Exam General: Alert, Cooperative, No Acute Distress HEENT: Pupils Equal, Pupils Reactive, EOMI, Mucous Membr. Moist/[place] Neck: Lymphadenopathy, Other (still swelling tonsils and posterior pharynx, improved) Lungs: Clear to Auscultation, Normal Respiratory Effort Cardiovascular: Regular Rate, Regular Rhythm GI/Abdominal Exam: Normal Bowel Sounds, Soft, Non-Tender, Hepatomegaly, Splenomegaly (Male) Exam: Deferred Back Exam: Normal Inspection Extremities: Normal Inspection, Non-Tender, No Pedal Edema Skin: Warm, Dry, Intact Neurological: No New Focal Deficit Psy/Mental Status: Alert, Normal Affect, Normal Mood - Problem List & Annotations (1) Hypertrophy tonsils SNOMED Code(s): 71849832 Code(s): J35.1 - HYPERTROPHY OF TONSILS Status: Acute Priority: High Current Visit: Yes (2) Dehydration SNOMED Code(s): 93941588 Code(s): E86.0 - DEHYDRATION Status: Acute Priority: High Current Visit : Yes Onset Date: ~07/09/17 Annotation/Comment:: Improving. Continues to receive IV fluids. Improved ability to take PO today however still with good amount of discomfort when swallowing. (3) Elevated LFTs SNOMED Code(s): 526923119 Code(s): R79.89 - OTHER SPECIFIED ABNORMAL FINDINGS OF BLOOD CHEMISTRY Status: Acute Priority: Medium Current Visit: Yes Onset Date: ~07/09/17 Annotation/Comment:: Suspect secondary to acute [place] infection. Hepatomegaly noted on abdominal xray today. (4) Mononucleosis SNOMED Code(s): 94946224 Code(s): B27.90 - INFECTIOUS MONONUCLEOSIS, UNSPECIFIED WITHOUT COMPLICATION Status: Acute Priority: High Current Visit: Yes Onset Date: 07/02/17 (5) Pharyngitis SNOMED Code(s): 040765045 Code(s): J02.9 - ACUTE PHARYNGITIS, UNSPECIFIED Status: Acute Priority: High Current Visit: Yes Qualifiers: Pharyngitis/tonsillitis etiology: infectious mononucleosis Qualified Code(s ): B27.90 - Infectious mononucleosis, unspecified without complication Annotation/Comment:: Mild improvement in size of tonsils noted today. Continuing Solumedrol Q12 - Problem List Review Problem List Initiated/Reviewed/Updated: Yes - My Orders Last 24 Hours: My Active Orders 07/19/17 15:00 methylPREDNISolone Sod Succ [Solu-MEDROL] 40 mg IVPUSH ONETIME ONE 07/19/17 15:02 Peripheral IV Discontinue [OM.PC] Routine - Assessment Assessment:: Acute [place] infection with secondary dehydration. Severe tonsillar enlargement has improved since yesterday, but remains significant. Pain is best controlled with MS but that causes some GI discomfort with patient. Has PRN Tylenol, Tramadol, and Toradol for pain management alternatives. Some improvement in ability to take PO noted today. - Plan Plan:: Acute Infectious Mononuclosis with severe pharyngitis and dehydration. Plan at this times includes continued observation, maintenance IV fluids, and pain management. Additionally, Solu-medrol with goal of improving tonsillar swelling. Anticipate 2 days in observation care. Will change to inpatient status if adaquate control of pain and swelling is not achieved in that timeframe. 07/19/17 Zara Membreno MD Finally feeling better. Less pain in back of throat. Able to drink more fluids. Stable to try discharge.
--- NOTE | 2017-07-19 17:39 | PCM.DCSUM1 ---
Discharge Summary - Discharge Data Discharge Date: 07/19/17 Discharge Disposition: Home, Self-Care 01 Condition: Good - Discharge Diagnosis/Problem(s) (1) Hypertrophy tonsils SNOMED Code(s): 83663985 ICD Code: J35.1 - HYPERTROPHY OF TONSILS Status: Acute Priority: High Current Visit: Yes (2) Dehydration SNOMED Code(s): 15319615 ICD Code: E86.0 - DEHYDRATION Status: Acute Priority: High Current Visit: Yes Onset Date: ~07/09/17 Problem Details: Improving. Continues to receive IV fluids. Improved ability to take PO today however still with good amount of discomfort when swallowing. (3) Elevated LFTs SNOMED Code(s): 773407495 ICD Code: R79.89 - OTHER SPECIFIED ABNORMAL FINDINGS OF BLOOD CHEMISTRY Status: Acute Priority: Medium Current Visit: Yes Onset Date: ~07/09/17 Problem Details: Suspect secondary to acute [place] infection. Hepatomegaly noted on abdominal xray today. (4) Mononucleosis SNOMED Code(s): 00320985 ICD Code: B27.90 - INFECTIOUS MONONUCLEOSIS, UNSPECIFIED WITHOUT COMPLICATION Status: Acute Priority: High Current Visit: Yes Onset Date : 07/02/17 (5) Pharyngitis SNOMED Code(s): 201059676 ICD Code: J02.9 - ACUTE PHARYNGITIS, UNSPECIFIED Status: Acute Priority: High Current Visit: Yes Problem Details: Mild improvement in size of tonsils noted today. Continuing Solumedrol Q12 Qualifiers: Pharyngitis/tonsillitis etiology: infectious mononucleosis Qualified Code(s ): B27.90 - Infectious mononucleosis, unspecified without complication - Patient Instructions Diet: Regular Diet as Tolerated Activity: As Tolerated (rest for 4-6 weeks) Driving: Do Not Drive Showering/Bathing: May Shower - Discharge Plan Home Medications: Home Meds DM Hb/PE/Acetaminophen/Chlorph [Sherry-Bartelso Plus Cld-Cough] 1 each PO Q4HR PRN 07/16/17 [History] Ibuprofen 600 mg PO Q4HR PRN 07/16/17 [History] traMADol [Ultram] 50 mg PO Q6H PRN #20 tablet 07/16/17 [Rx] Prednisone [IJD: predniSONE] 40 mg PO WITHBREAKFAST PRN 12/17/17 [History] Patient Handouts: Tramadol tablets, Infectious Mononucleosis, [id number], Dehydration, Adult, [id number], Methylprednisolone Solution for Injection - Discharge Summary/Plan Comment DC Time >30 min.: No - Patient Data Vitals - Most Recent: Last Vital Signs Temp 98 F 07/19/17 00:30 Pulse 96 07/19/17 00:30 Resp 18 07/19/17 00:30 BP 131/57 L 07/19/17 00:30 Pulse Ox 97 07/19/17 00:30 Weight - Most Recent: 223 lb 0.984 oz I&O - Last 24 hours: Intake & Output 07/19/17 07/19/17 07/19/17 06:59 14:59 22:59 Intake Total 1000 Balance 1000 Med Orders - Current: Current Medications Acetaminophen (Tylenol) 650 mg PO Q4H PRN PRN Reason: analgesia/fever Sodium Chloride (Normal Saline) 1,000 mls @ 125 mls/hr IV [facility]RECTED [facility] Last Admin: 07/19/17 02:32 Dose: 150 mls/hr Ketorolac Tromethamine (Toradol) 30 mg IVPUSH Q8H PRN PRN Reason: Pain Stop: 07/23/17 12:01 Last Admin: 07/18/17 13:31 Dose: 30 mg Methylprednisolone Sodium Succinate (Solu-Medrol) 125 mg IVPUSH Q12H [facility] Last Admin: 07/19/17 04:38 Dose: 125 mg Morphine Sulfate (Morphine) 2 mg IVPUSH Q4H PRN PRN Reason: Pain Last Admin: 07/18/17 23:29 Dose: 2 mg Ondansetron HCl (Zofran) 4 mg IVPUSH Q6H PRN PRN Reason: Nausea/Vomiting Last Admin: 07/18/17 23:29 Dose: 4 mg Pantoprazole Sodium (Protonix Iv) 40 mg IVPUSH DAILY [facility] Last Admin: 07/19/17 13:00 Dose: Not Given Senna/Docusate Sodium (Senna Plus) 1 tab PO BID PRN PRN Reason: Constipation Last Admin: 07/18/17 13:31 Dose: 1 tab Sodium Chloride (Saline Flush) 10 ml FLUSH ASDIRECTED PRN PRN Reason: to keep IV open Last Admin: 07/19/17 04:39 Dose: 10 ml Tramadol HCl (Ultram) 50 mg PO Q6H PRN PRN Reason: Pain Last Admin: 07/18/17 11:25 Dose: 50 mg Discontinued Medications Sodium Chloride (Normal Saline) 500 mls @ 500 mls/hr IV .BOLUS [facility] Ketorolac Tromethamine (Toradol) 30 mg IVPUSH ONETIME ONE Stop: 07/17/17 15:09 Last Admin: 07/17/17 15:31 Dose: 30 mg Methylprednisolone Sodium Succinate (Solu-Medrol) 125 mg IVPUSH ONETIME ONE Stop: 07/17/17 15:38 Last Admin: 07/17/17 15:43 Dose: 125 mg Morphine Sulfate (Morphine) 5 mg IVPUSH ONETIME ONE Stop: 07/17/17 16:28 Last Admin: 07/17/17 16:43 Dose: 5 mg Morphine Sulfate (Morphine) 4 mg IVPUSH Q2H PRN PRN Reason: Pain Last Admin: 07/18/17 04:44 Dose: 4 mg Ondansetron HCl (Zofran) 4 mg IVPUSH ONETIME ONE Stop: 07/17/17 16:29 Last Admin: 07/17/17 16:43 Dose: 4 mg *Q Meaningful Use (DIS) - VTE *Q VTE Criteria *Q: - Stroke *Q Stroke Criteria *Q: - AMI *Q AMI Criteria *Q:
== END 2017-07-19 15:45 | disposition home or self-care (01) ==
LOC: LL.MS 15:06
PROVIDERS: ADMIT Emergency Medicine; ATTEND Family Medicine
DX: J35.1 Hypertrophy of tonsils (principal); E86.0 Dehydration; R79.89 Other specified abnormal findings of blood chemistry; J02.9 Acute pharyngitis, unspecified; B27.90 Infectious mononucleosis, unspecified without complication; Z79.899 Other long term (current) drug therapy
CPT/HCPCS: 36415; 74020; 80053; 81001; 85025; 96361; 96374; 96375; 96376; A9270; C9113; G0378; J1885; J2270; J2405; J2920; J2930; J7030; J7050

== ENCOUNTER 2020-10-31 23:23 | Emergency (ER) | payer OTHER ==
[2020-10-31 23:50] LABS: CHLORIDE,CL 104 mmol/L (98-107); SODIUM,NA 142 mmol/L (136-145)
[2020-11-01] MEDS ORDERED: Ondansetron 4 MG Tab.DIS PO ONE (00:31)
[2020-11-01] MEDS ORDERED: Morphine 10 MG/ML SDV SUBCUT ONE (00:32)
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
[2020-11-01] MEDS ORDERED: HYDROmorphone 1 MG/ML Syringe IM ONE (01:23)
[2020-11-01] MEDS ORDERED: Bacitracin Oint 1 GM U/D Packet TOP ONE (02:00)
[2020-11-01] MEDS ORDERED: Bacitracin/Neomycin/Polymyxin B Oint 0.9 GM U/D Packet ONE (02:00)
[2020-11-01 07:39] VITALS: BP 126/60; PULSE 69
== END 2020-11-01 02:37 | disposition home or self-care (01) ==
LOC: LL.ED 23:23
DX: S90.112A Contusion of left great toe without damage to nail, initial encounter (principal); S80.212A Abrasion, left knee, initial encounter; S30.810A Abrasion of lower back and pelvis, initial encounter; V86.56XA Driver of dirt bike or motor/cross bike injured in nontraffic accident, initial encounter
CPT/HCPCS: 36415; 73110-RT; 73562-LT; 73610-LT; 73660-TA; 80053; 85025; 96372; 99284; 99285; A9270-GY; J1170; J2270